=== PATIENT | male | born 1955 | race Caucasian/White ===

== ENCOUNTER 2021-07-16 03:10 | Day surgery (SDC) | payer OTHER ==
[~2021-07-16 03:10] MED LIST: AMOCLA875 PO; CARV3.125 PO; CEPH500 PO; D3-20002000 UNIT PO; ERGO50000 PO; FLUT44OIA; GABA300T24 PO; HYDACE10B PO; HYDACE5 PO; IBUP800; IBUP800 PO; LEVSOD75 PO; LISI20 PO; META800 PO; NAPR500 PO; RANI150; RANI150 PO; RXHYDACE PO; SULTRIDS PO; TOBR.3OPSO OS; TRAZ50; ZYRTEC10 M1 PO
--- NOTE | 2021-07-19 12:14 | NUR ---
Received a call from Nithya ENRIQUE at the [facility]. Pt had a shoulder xray done at the [facility] and the report states that pt's PICC line is malpositioned. Orders received via fax to replace PICC line. Order and xray reports given to [employer] scheduler to have pt return tomorrow to replace PICC line. Per Michelle, pt's authorization that was received to place PICC line is still current.
== END 2021-07-16 22:56 | disposition home or self-care (01) ==
LOC: ATC 03:10
DX: Z45.2 Encounter for adjustment and management of vascular access device (principal)
CPT/HCPCS: 36569; C1751

== ENCOUNTER 2021-07-20 04:57 | Day surgery (SDC) | payer OTHER | END 2021-07-20 16:26 | disposition home or self-care (01) | LOC: ATC 04:57 | DX: Z45.2 Encounter for adjustment and management of vascular access device (principal) | CPT/HCPCS: 36569; 71045; C1751 ==

== ENCOUNTER 2021-07-23 05:14 | Day surgery (SDC) | payer OTHER | END 2021-07-23 09:10 | disposition home or self-care (01) | LOC: ATC 05:14 | DX: Z45.2 Encounter for adjustment and management of vascular access device (principal) | CPT/HCPCS: 99212 ==

== ENCOUNTER 2024-03-09 14:20 | Emergency (ER) | payer OTHER ==
[~2024-03-09] VITALS: Ht 182.9 cm; Wt 99.8 kg
[~2024-03-09 14:20] MED LIST changes: +ONDA4ODT MM
[2024-03-09 14:24] VITALS: BP 152/105
[2024-03-09] MEDS ORDERED: Ketorolac Tromethamine 15mg Vial IM ONE (16:05)
== END 2024-03-09 16:30 | disposition home or self-care (01) ==
LOC: ER 14:20
DX: M25.512 Pain in left shoulder (principal); X50.1XXA Overexertion from prolonged static or awkward postures, initial encounter; Z88.6 Allergy status to analgesic agent; Z79.899 Other long term (current) drug therapy; I10 Essential (primary) hypertension; Z87.891 Personal history of nicotine dependence
CPT/HCPCS: 73030; 96372; 99283-25; J1885

== ENCOUNTER 2024-04-01 08:33 | Day surgery (SDC) | payer OTHER ==
[~2024-04-01] VITALS: Ht 175 cm; Wt 97.7 kg
[2024-04-01] VITALS (15 sets, daily range): BP systolic 98–168; BP diastolic 64–95
[~2024-04-01 08:33] MED LIST changes: +1/2 NS 250ml250 ML; +ALLEGRA ALLERG180 MG PO; +AMLO5 PO; +DOCU100 PO
[2024-04-01] MEDS ORDERED: Ropivacaine 0.5% HCl/Pf 123.125 MG,EPINEPHrine HCL 0.25 MG,Ketorolac Tromethamine 15 MG... INFIL SCH (08:45)
[2024-04-01] MEDS ORDERED: Chlorhexidine Mouth Care 15 ML UDC MT SCH (08:45)
[2024-04-01] MEDS ORDERED: CeFAZolin Sodium 2,000 MG in NS 100 ML IV SCH ×2 (08:45→18:00)
[2024-04-01] MEDS ORDERED: Acetaminophen 500 MG Tab PO SCH ×2 (08:45→16:00)
[2024-04-01] MEDS ORDERED: Lactated Ringer's 1,000 ML IV SCH ×2 (08:45→10:00)
[2024-04-01] MEDS ORDERED: OxyCODONE HCL 10 MG TABCR PO SCH (08:45)
[2024-04-01] MEDS ORDERED: propofoL 20 ML IV ONE (08:57)
[2024-04-01] MEDS ORDERED: STRIVERDI RESPIM4 G1 (09:45)
[2024-04-01] MEDS ORDERED: Tranexamic Acid 100 ML IV SCH (09:50)
[2024-04-01] MEDS ORDERED: Bupivacaine 0.75%/Dext 8.25% 2 ML Amp IT ONE (09:52)
[2024-04-01] MEDS ORDERED: propofoL 100 ML IV ONE (09:53)
--- NOTE | 2024-04-01 09:53 | NUR ---
Ambulatory in Day Surgery W/CANE. Pre-Op teaching done. Pt verbalizes understanding. History, Chart, Medications and Allergies reviewed before start of procedure.Patient confirms NPO status and agrees with scheduled surgery.
[2024-04-01] MEDS ORDERED: Loratadine 10 MG Tab PO PRN (10:00)
[2024-04-01] MEDS ORDERED: DiphenhydrAMINE HCL 25 MG Cap PO PRN (10:00)
[2024-04-01] MEDS ORDERED: Ondansetron HCl 2 MG / ML 2ML Vial IV PRN (10:00)
[2024-04-01] MEDS ORDERED: Bisacodyl 10 MG Supp PR PRN (10:00)
[2024-04-01] MEDS ORDERED: Magnesium Hydroxide Conc 10 ML UDC PO PRN (10:00)
[2024-04-01] MEDS ORDERED: Promethazine HCl 25 MG Tab PO PRN (10:05)
[2024-04-01] MEDS ORDERED: OxyCODONE HCL 5 MG TAB PO PRN ×2 (10:05)
[2024-04-01] MEDS ORDERED: Metoclopramide HCl 5MG / ML 2ML Vial IV PRN (10:05)
[2024-04-01] MEDS ORDERED: Midazolam HCl 1MG / ML 2ML Vial IV ONE (10:05)
[2024-04-01] MEDS ORDERED: HYDROmorphone HCl/Pf 1MG SYR IV PRN (10:05)
--- NOTE | 2024-04-01 10:33 | NUR ---
LUCILA JOHNSON, [facility] [employer] FLOOR CHARGE TO BEDSIDE WITH ULTRASOUND FOR POTENTIAL POWERGLIDE PLACEMENT. PT CALM, COOPERATIVE, AND KIND. DENIES ANXIETY R/T IV PLACEMENT.
--- NOTE | 2024-04-01 11:25 | NUR ---
04/01/24 1125 Ciera Ledesma SPINAL NERVE BLOCK COMPLETED BY LUIS M HOLMAN UPON ENTRY TO OR. PT TOLERATED WELL.
[2024-04-01] MEDS ORDERED: Dexamethasone Sod Phos 10 MG/ML 1ML VIAL ONE (11:36)
[2024-04-01] MEDS ORDERED: Ondansetron HCl 2 MG / ML 2ML Vial ONE (11:36)
[2024-04-01] MEDS ORDERED: Ketorolac Tromethamine 15mg Vial IV SCH (12:00)
[2024-04-01] MEDS ORDERED: Carvedilol 3.125 MG Tab PO SCH (17:00)
--- NOTE | 2024-04-01 19:10 | NUR ---
SHIFT SUMMARY MINI SESSION w/ THERAPY. UP IN CHAIR. EATING, DRINKING, & VOIDING. STRUGGLING w/ PAIN MANAGEMENT; REQUIRED DOSE OF DILAUDID.
[2024-04-01] MEDS ORDERED: AmLODIPine Besylate 5 MG Tab PO SCH (21:00)
[2024-04-01] MEDS ORDERED: Lisinopril 20 MG Tab PO SCH (21:00)
[2024-04-01] MEDS ORDERED: Docusate Sodium 100 MG Cap PO SCH (21:00)
[2024-04-02 02:17] VITALS: BP 144/96
--- NOTE | 2024-04-02 04:58 | NUR ---
SHIFT SUMMARY SAMMY WAS ALERT AND ORIENTED ON ASSESSMENT. AQUACEL DRESSING TO SURGICAL SITE IS C/D/I PT VOIDING AND AMBULATING WELL WITH 1P ASSIST PT DENIES N/T. PT REQUESTING ALL PAIN MEDS FREQUENTLY, CLAIMING PRETTY CONSISTENT 8/10 PAIN TO SURGICAL SITE. NO ACUTE EVENTS OR CHANGES TO PT CONDITION.
[2024-04-02 05:05] LABS: BASOPHILS ABSOLUTE AUTO 0.04 K/mm3 (0.00-0.23); BASOPHILS PERCENT AUTO 0 % (0-2); EOSINOPHILS ABSOLUTE AUTO 0.06 K/mm3 (0.00-0.68); EOSINOPHILS PERCENT AUTO 0 % (0-6); Hematocrit 30.9 % (37.0-53.0); Hemoglobin 10.5 g/dL (13.5-17.5); IMMATURE GRAN ABSOLUTE AUTO 0.08 K/mm3 (0.00-0.10); IMMATURE GRAN PERCENT AUTO 1 % (0-1); LYMPHOCYTES PERCENT AUTO 11 % (21-46); MONOCYTES ABSOLUTE AUTO 1.14 K/mm3 (0.16-1.47); MONOCYTES PERCENT AUTO 7 % (4-13); Mean Corpuscular HGB 29.8 pg (26.0-34.0); Mean Corpuscular Volume 88 fL (80-100); Mean Platelet Volume 10.5 fL (9.1-12.4); NEUTROPHILS PERCENT AUTO 81 % (41-73); Platelet Count 204 K/mm3 (150-400); RDW Coefficient Variation 13.4 % (11.7-14.2); Red Blood Cell Count 3.52 M/mm3 (4.30-5.90); White Blood Cell Count 16.02 K/mm3 (4.00-11.30)
[2024-04-02] MEDS ORDERED: Levothyroxine Sodium 0.075 MG Tab PO SCH (06:00)
[2024-04-02 06:16] LABS: Bun/Creatinine Ratio 23.7 (12.0-20.0); Calcium, Blood 8.7 mg/dL (8.5-10.1); Creatinine, Blood 0.67 mg/dL (0.60-1.20); Magnesium, Blood 1.4 mg/dL (1.6-2.4)
[2024-04-02 07:36] VITALS: BP 186/96
[2024-04-02 08:25] VITALS: BP 181/96
[2024-04-02 08:44] VITALS: BP 169/89
[2024-04-02] MEDS ORDERED: Aspirin 81 MG Chew PO SCH (09:00)
[2024-04-02] MEDS ORDERED: ASPI81CH PO (09:39)
[2024-04-02] MEDS ORDERED: ACET500 PO (09:40)
[2024-04-02] MEDS ORDERED: OXYC5 PO (09:41)
--- NOTE | 2024-04-02 10:31 | NUR ---
DISCHARGE PT HAS WORKED w/ THERAPY. RATES PAIN HIGH BUT REPORTS WILL MANAGE AT HOME. EATING, DRINKING, & VOIDING WELL. [facility] JORGE HIGHTOWER SENT w/ PT. ESCORTED OUT VIA W/C.
== END 2024-04-02 10:15 | disposition home or self-care (01) ==
LOC: ORSCMMR 08:33 → SURS 13:08 → ORSCMMR 04-02 10:15
PROVIDERS: Orthopaedic Surgery
DX: M17.11 Unilateral primary osteoarthritis, right knee (principal); J44.9 Chronic obstructive pulmonary disease, unspecified; G47.33 Obstructive sleep apnea (adult) (pediatric); I10 Essential (primary) hypertension; Z87.891 Personal history of nicotine dependence; E03.9 Hypothyroidism, unspecified; E11.9 Type 2 diabetes mellitus without complications; Z79.899 Other long term (current) drug therapy
CPT/HCPCS: 27447; 0055T; 73560-RT; 80048; 82947; 83735; 85025; 97110; 97116; 97162; A9270; C1713; C1776; J0171; J0690; J0735; J1100; J1170; J1885; J2250; J2405; J2704; J2795; J7120